=== PATIENT | male | born 1965 | race Caucasian/White ===

== ENCOUNTER 2021-09-19 09:37 | Outpatient (CLI) | payer BC | END 2021-09-19 09:38 | disposition home or self-care (01) | LOC: RAD 09:37 | PROVIDERS: ATTEND Physician Assistant Medical | DX: R13.10 Dysphagia, unspecified (principal); K21.9 Gastro-esophageal reflux disease without esophagitis; J98.4 Other disorders of lung; R91.1 Solitary pulmonary nodule; K22.2 Esophageal obstruction | CPT/HCPCS: 74220 ==

== ENCOUNTER 2021-09-24 10:08 | Outpatient (CLI) | payer BC | END 2021-09-24 10:09 | disposition home or self-care (01) | LOC: BICRAD 10:08 | PROVIDERS: ATTEND Physician Assistant Medical | DX: R91.1 Solitary pulmonary nodule (principal); K21.00 Gastro-esophageal reflux disease with esophagitis, without bleeding; R13.10 Dysphagia, unspecified | CPT/HCPCS: 71046 ==